=== PATIENT | male | born 1975 | race Caucasian/White ===

== ENCOUNTER 2019-07-04 16:46 | Emergency (ER) | payer BC, SELFPAY ==
[2019-07-04 16:59] VITALS: BP 135/78; PULSE 103; RESP 18; TEMP 36.8; O2SAT 100
--- NOTE | 2019-07-04 17:01 | ED.GENADULT ---
HPI - General Adult General Chief complaint: Ear Stated complaint: ear pain/left side numbness Time Seen by Provider: 07/04/19 17:01 Source: patient Mode of arrival: ambulatory Limitations: no limitations History of Present Illness HPI narrative: 43-year-old male patient presents to the [facility] with complaints of bilateral muffled hearing as well as upper back pain that radiates to the left arm. Patient states that he has had the symptoms for about a week and a half now but the hearing symptoms just started yesterday. Patient denies any fevers. Patient states he has had a little bit of a stuffy nose with some postnasal drip denies any coughing. Patient denies any sore throat, chest pain, shortness of breath, abdominal pain, nausea, vomiting or diarrhea. Patient states that a week and a half ago he tripped over his dog and kind of knocked heads with his at the time. Patient states he is just been getting more more sore recently and did see his chiropractor last Wednesday as well as yesterday and got readjusted and has been taking Keyla aspirin for his pain. Patient states that the pain does shoot down the left arm and does get tingling at times. 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 Related Data Home Medications Medication Instructions Recorded Confirmed citalopram 40 mg PO DAILY 07/04/19 07/04/19 lorazepam 1 mg PO BID 07/04/19 07/04/19 quetiapine 100 mg PO HS 07/04/19 07/04/19 zolpidem 10 mg PO HS 07/04/19 07/04/19 Allergies Allergy/AdvReac Type Severity Reaction Status Date / Time No Known Allergies Allergy Verified 07/04/19 17:06 Review of Systems Review of Systems: Narrative: CONSTITUTIONAL: Denies fever, chills, or sweats. EYES: Denies visual changes, redness, or discharge. ENT: Positive rhinorrhea, congestion, denies sore throat, positive bilateral otalgia. CARDIOVASCULAR: Denies chest pain, palpitations, or edema. RESPIRATORY: Denies cough or dyspnea. GASTROINTESTINAL: Denies abdominal pain, nausea, vomiting, or diarrhea. GENITOURINARY: Denies dysuria or hematuria. SKIN: Denies rash or itching. MUSCULOSKELETAL: Positive left upper back pain, denies joint pain, or myalgia. NEUROLOGIC: Denies headache, numbness, or weakness. PSYCHIATRIC: Denies anxiety or depression. PMFSH Comments At the time of my signature I agree with nursing past medical history, surgical, social, and family history. There is no relevant family history pertinent to the presenting complaint. Exam Narrative: Exam Narrative: GENERAL: Well-appearing, well-nourished, and in no acute distress. HEAD: Normocephalic, atraumatic. No tenderness noted to frontal maxillary sinuses on palpation. EYES: PERRLA and EOMI. ENT: Nares with erythema and edema noted bilaterally, no rhinorrhea or epistaxis. Mucous membranes moist. Posterior pharynx with some postnasal drip but no erythema no tonsil enlargement no exudates or lesions present. Slight cloudiness noted to bilateral TMs but no erythema or foreign bodies in the canal. NECK: Supple. No lymphadenopathy CHEST: Clear to auscultation. No respiratory distress. HEART: Regular rate and rhythm. No murmur heard. Normal peripheral pulses. ABDOMEN: Soft, nontender, nondistended, normal active bowel sounds. EXTREMITIES: Normal range of motion. No edema. BACK: Patient is able to ambulated without assistance. Pt is seated on the stretcher in no obvouis distress. No surface trauma noted. muscle tenderness and spasm noted to the left upper scapula area that reproduces the tingling and numbness down the arm when pressure is placed up against it. No step-offs or deformity noted to the cervical, thoracic or lumbar spine to firm Palpation at the midline. No CVA tenderness to percussion. No saddle anesthesia. ROM: able to stand erect. Normal flexion, extension, Lateral bending and rotation without limitation or complaint of pain. SKIN: Warm, dry, no rash. NEURO: No focal deficits. Marychuy
== END 2019-07-04 17:29 | disposition home or self-care (01) ==
PROVIDERS: Emergency Provider Nurse Practitioner Family; PCP Family Medicine Adolescent Medicine
DX: J00 Acute nasopharyngitis [common cold] (principal); J01.90 Acute sinusitis, unspecified; H93.8X3 Other specified disorders of ear, bilateral; M62.830 Muscle spasm of back; F32.9 Major depressive disorder, single episode, unspecified; F41.9 Anxiety disorder, unspecified
CPT/HCPCS: 99203; G0463

== ENCOUNTER 2021-06-06 16:04 | Emergency (ER) | payer BC, SELFPAY ==
[2021-06-06 17:24] VITALS: BP 127/87; PULSE 117; RESP 16; TEMP 36.6; O2SAT 99
--- NOTE | 2021-06-06 18:12 | ED.NAVMDI ---
HPI - Nausea/Vomiting/Diarrhea General Chief complaint: Nausea/Vomiting/Diarrhea Stated complaint: Nausea,Vomiting History of Present Illness HPI Narrative: Wil is a 45-year-old male patient who ambulated into the [facility]. Patient has a long history of feeling like food gets caught in his throat. Patient states he goes to the bathroom and vomits and usually is better. [facility] he went to the bathroom vomited multiple times. He is still able to drink water. But he is still vomiting. Patient states he does not have the feeling that something is stuck in his throat. He is worried about the vomiting. Patient is also extremely anxious patient states he feels like he is having spasms and has continuous hiccups. Patient has been seen in the past in the ER in the office multiple times for similar complaints. MD elicited complaint: nausea Related Data Home Medications Medication Instructions Recorded Confirmed citalopram 40 mg PO DAILY 07/04/19 06/06/21 lorazepam 1 mg PO BID 07/04/19 06/06/21 quetiapine 100 mg PO HS 07/04/19 06/06/21 zolpidem 10 mg PO HS 07/04/19 06/06/21 Allergies Allergy/AdvReac Type Severity Reaction Status Date / Time No Known Allergies Allergy Verified 06/06/21 17:23 Review of Systems Review of Systems: CONSTITUTIONAL: Denies body aches, fever, chills, or sweats. EYES: Denies visual changes, redness, or discharge. ENT: Denies rhinorrhea, congestion, sore throat, or otalgia. CARDIOVASCULAR: Denies chest pain, palpitations, or edema. RESPIRATORY: Denies cough or dyspnea. GASTROINTESTINAL: Denies abdominal pain,+nausea, +vomiting, Diarrhea. GENITOURINARY: Denies dysuria or hematuria. SKIN: Denies rash, itching, or wounds. MUSCULOSKELETAL: Denies back pain, joint pain, or myalgia. NEUROLOGIC: Denies headache, numbness, tingling, or weakness. PSYCH: Denies depression or anxiety. All systems reviewed & are unremarkable except as noted in HPI and below PMFSH Comments At time of signature, I have reviewed and agree with nursing past medical, surgical, social and family history unless otherwise noted. Please see nursing chart for further information. There is no relevant family history pertinent to the presenting complaint Exam Narrative: GENERAL: Well-appearing, well-nourished, and in no acute distress. HEAD: Normocephalic, atraumatic. EYES: EOMI. No redness or drainage. Conjunctivae normal. ENT: Mucous membranes pink and moist. Nares clear. No rhinorrhea. NECK: Normal AROM. Supple. . CHEST: No respiratory distress. Clear to auscultation. HEART: Regular rate and rhythm. No murmur appreciated. ABDOMEN: Soft, nontender, nondistended, normal active bowel sounds. MUSCULOSKELETAL: No bony tenderness. EXTREMITIES: Normal range of motion. No edema. SKIN: Warm, dry, no rash. Capillary refill normal. Normal skin turgor. NEURO: No focal deficits. Alert and oriented x3. Gait steady. PSYCH: Normal affect. No signs of depression or anxiety. Course Vital Signs Vital signs: Vital Signs Temperature 36.6 C 06/06/21 17:24 Pulse Rate 117 H 06/06/21 17:24 Respiratory Rate 16 06/06/21 17:24 Blood Pressure 127/87 06/06/21 17:24 Pulse Oximetry 99 06/06/21 17:24 Temperature 36.6 C 06/06/21 17:24 Pulse Rate 117 H 06/06/21 17:24 Respiratory Rate 16 06/06/21 17:24 Blood Pressure 127/87 06/06/21 17:24 Pulse Oximetry 99 06/06/21 17:24 MDM - Nausea/Vomiting/Diarrhea MDM Narrative Medical decision making narrative: Patient has nausea. Patient has vomited multiple times since eating at [employer]. Patient states he has the hiccups and feels like he is retching. Patient will be instructed to follow-up with Dr. Milan on Wednesday or Wednesday for continued symptoms. Patient was instructed to go to the ER immediately if he feels like he cannot eat, drink, or any severe shortness of breath. Lung
== END 2021-06-06 18:16 | disposition home or self-care (01) ==
PROVIDERS: Emergency Provider Nurse Practitioner Family; PCP Family Medicine Adolescent Medicine
DX: R11.2 Nausea with vomiting, unspecified (principal)
CPT/HCPCS: 99213; G0463

== ENCOUNTER 2021-12-31 00:45 | Day surgery (SDC) | payer BC, SELFPAY ==
[2021-12-16 14:28] VITALS: BMI 29.6
--- NOTE | 2021-12-31 09:16 | WPDANESEPPF ---
Anes - Initial Pre Proc Eval Procedure: Operation Date: 12/31/21 10:45 Proposed Procedures p Esophagogastroduodenoscopy - Nils Palacio MD Date/Time: 12/31/21 09:16 Surgeon: Nils Palacio MD Pre Op Diagnosis: dysphagia Patient Data Age: 46 Gender: M Height: 1.75 m Weight: 91 kg Allergies Allergy/AdvReac Type Severity Reaction Status Date / Time No Known Allergies Allergy Verified 12/31/21 09:32 Home Medications Medication Instructions Recorded Confirmed Type zolpidem 10 mg tablet 10 mg PO QHS #30 tabs 09/28/21 12/16/21 Rx citalopram 40 mg tablet 40 mg PO DAILY #90 tabs 10/06/21 12/16/21 Rx quetiapine 100 mg tablet 100 mg PO HS #90 tabs 10/24/21 12/16/21 Rx lorazepam 0.5 mg tablet 1 mg PO BID PRN anxiety #120 tabs 12/18/21 12/31/21 Rx Patient hx anesthesia problems: none Family hx anesthesia problems: none Results Review: All pre-operative results and documents have been reviewed as part of the pre-operative evaluation. [facility] Past Medical History Medical History (Updated 12/31/21 @ 09:17 by Sourav Mendes MD) Chronic GERD Generalized anxiety disorder History of arm fracture left arm requiring pin placement Major depressive disorder, recurrent, moderate Overweight (BMI 25.0-29.9) Surgical History Surgical History History of vasectomy Family History Family History Mother Asthma Depression Diabetes mellitus Father Depression Diabetes mellitus Hypertension Social History Social History Smoking status: Never smoker Second hand tobacco smoke exposure: No Alcohol intake: never Substance use: never Substance use type: does not use Living arrangements: with family Gender identity (if verbalized by the patient): Male Sexual Orientation (if Verbalized by the Patient): Straight or Heterosexual Spiritual care concerns: No Agree to blood products: Yes Anes - Eval Final PreProcedure Day of Procedure 12/31/21 09:16 Patient weight: overweight Heart: regular rate and rhythm Lungs: clear to auscultation and normal air movement Airway: Mallampati scale class II Neurological: alert and oriented Last oral intake: >/= 8 hours ASA classification: II Emergent: no Anesthetic plan: proceed Anesthesia type and monitoring: general GIVS Results Review: All pre-operative results and documents have been reviewed as part of the pre-operative evaluation. Informed Consent: The patient's anesthetic plan and its attendant risks and benefits were discussed with the patient/family/POA. Questions were solicited and answers provided to the satisfaction of the patient/family/POA.
[2021-12-31 09:33] VITALS: BP 101/62; PULSE 96; RESP 18; TEMP 36.2; O2SAT 100
[2021-12-31] MEDS: LACTATED RINGERS 1,000 ML 150 ML IV CONT (09:43)
--- NOTE | 2021-12-31 10:31 | PM.HPGS ---
History of Present Illness History of Present Illness Consent: Risks, benefits, and alternatives have been discussed and questions answered. Patient agrees to proceed with procedure. Chief complaint: dysphagia Narrative: Vasiliy Chen is a 46 year old male with choking sensation after eating mostly solids, never had egd and he has not tried a medication. Review of Systems Constitutional: Constitutional: Denies headache(s) and Denies weakness Eyes: Eyes: Denies blurry vision ENT: Reports Normal hearing present, Denies headache(s) and Denies neck pain Cardiovascular: Cardiovascular: Denies chest pain and Denies dyspnea Respiratory: Respiratory: Denies dyspnea Gastrointestinal: Gastrointestinal: Reports no additional gastrointestinal complaints Genitourinary: Genitourinary: Denies dysuria Musculoskeletal: Musculoskeletal: Denies neck pain Integumentary/Breasts: Skin/Breast: Denies dry skin Neurologic: Reports Normal hearing present, Denies headache(s) and Denies weakness Psychiatric: Psychiatric: Denies anxiety Endocrine: Endocrine: Denies change in body appearance Hematologic/Lymphatic: Hematologic/Lymphatic: Denies easy bleeding Allergic/Immunologic: Allergic/Immunologic: Denies urticaria PMFSH Past Medical History Medical History (Updated 12/31/21 @ 10:32 by Nils Palacio MD) Chronic GERD Dysphagia Generalized anxiety disorder History of arm fracture left arm requiring pin placement Major depressive disorder, recurrent, moderate Overweight (BMI 25.0-29.9) Surgical History Surgical History History of vasectomy Family History Family History Mother Asthma Depression Diabetes mellitus Father Depression Diabetes mellitus Hypertension Social History Social History Smoking status: Never smoker Second hand tobacco smoke exposure: No Alcohol intake: never Substance use: never Substance use type: does not use Living arrangements: with family Gender identity (if verbalized by the patient): Male Sexual Orientation (if Verbalized by the Patient): Straight or Heterosexual Spiritual care concerns: No Agree to blood products: Yes Meds Home Medications and Allergies Home Medications Medication Instructions Recorded Confirmed Type zolpidem 10 mg tablet 10 mg PO QHS #30 tabs 09/28/21 12/16/21 Rx citalopram 40 mg tablet 40 mg PO DAILY #90 tabs 10/06/21 12/16/21 Rx quetiapine 100 mg tablet 100 mg PO HS #90 tabs 10/24/21 12/16/21 Rx lorazepam 0.5 mg tablet 1 mg PO BID PRN anxiety #120 tabs 12/18/21 12/31/21 Rx Allergies Allergy/AdvReac Type Severity Reaction Status Date / Time No Known Allergies Allergy Verified 12/31/21 09:32 Vital Signs Vital Signs - 24 hr 12/31/21 09:33 Temperature 97.1 F L Pulse Rate 96 Respiratory Rate 18 Blood Pressure 101/62 Pulse Oximetry 100 Oxygen Delivery Room Air Exam Const: General: comfortable and no acute distress HENMT: General nose exam: Normal nares present Eyes: General: appearance normal, both eyes and all related structures Neck: Neck: no JVD Resp: Auscultation: clear to auscultation bilaterally Cardio: Rate: regular rate Rhythm: regular rhythm GI: Inspection: non-distended GI Palp: Yes Soft to palpation Skin: General skin exam: normal color Neuro: General: gait normal Speech: normal speech Extrem: General: normal to inspection Psych: Mental Status: mental status grossly normal Assessment and Plan Assessment and plan (1) Dysphagia: Code(s): R13.10 - Dysphagia, unspecified Status: Acute Assessment and Plan: egd to assess if eoe, stricture, gerd, etc more recommendations after scope
[2021-12-31 10:51] VITALS: BP 116/67; PULSE 86; RESP 20; O2SAT 100
[2021-12-31 11:01] VITALS: BP 121/88; PULSE 78; RESP 17; O2SAT 100
[2021-12-31 11:11] VITALS: BP 126/84; PULSE 78; RESP 17; O2SAT 100
--- NOTE | 2021-12-31 11:15 | SUR.PHASEII ---
patient had on the phone as discharge instructions were gone over.
== END 2021-12-31 11:21 | disposition home or self-care (01) ==
PROVIDERS: PCP Family Medicine Adolescent Medicine; Visit Provider Internal Medicine Gastroenterology
PROC: 0DJ08ZZ Inspection of Upper Intestinal Tract, Via Natural or Artificial Opening Endoscopic (ICD-10-PCS; CPT 43235; principal; 2021-12-31 10:45)
DX: R13.10 Dysphagia, unspecified (principal); K21.00 Gastro-esophageal reflux disease with esophagitis, without bleeding; K22.2 Esophageal obstruction; K29.50 Unspecified chronic gastritis without bleeding; F32.A Depression, unspecified
CPT/HCPCS: 43239; 43249; 87081; 88305; C1726; J2001; J2704; J7120

== ENCOUNTER 2022-08-06 12:15 | Emergency (ER) | payer BC, SELFPAY ==
[2022-08-06 12:23] VITALS: BP 135/76; PULSE 102; RESP 18; TEMP 36.4; O2SAT 100
--- NOTE | 2022-08-06 12:46 | ED.URI ---
HPI - URI/Sore Throat General Chief Complaint: Upper Respiratory Infection Stated Complaint: Sore Throat,Fatigue,Congestion Time Seen by Provider: 08/06/22 12:41 Source: patient and family () Mode of arrival: ambulatory Limitations: no limitations History of Present Illness HPI Narrative: Patient presents today complaining of a through his stool sore throat, postnasal drip, and headache. Denies any additional symptoms to include cough, fever. Currently rates his pain 4/10 and has been taking DayQuil and ibuprofen without much relief. Patient is a schoolteacher with multiple sick contacts. Related Data Allergies Allergy/AdvReac Type Severity Reaction Status Date / Time No Known Allergies Allergy Verified 08/06/22 12:40 Review of Systems Review of Systems: CONSTITUTIONAL: Denies body aches, fever, chills, or sweats. EYES: Denies visual changes, redness, or discharge. ENT: Denies rhinorrhea, congestion, or otalgia.+ sore throat, postnasal drip CARDIOVASCULAR: Denies chest pain, palpitations, or edema. RESPIRATORY: Denies cough or dyspnea. GASTROINTESTINAL: Denies abdominal pain, nausea, vomiting, or diarrhea. GENITOURINARY: Denies dysuria or hematuria. SKIN: Denies rash, itching, or wounds. MUSCULOSKELETAL: Denies back pain, joint pain, or myalgia. NEUROLOGIC: Denies numbness, tingling, or weakness.+ headache PSYCH: Denies depression or anxiety. [facility] Past Medical History Medical History Chronic GERD Dysphagia Generalized anxiety disorder History of arm fracture left arm requiring pin placement Major depressive disorder, recurrent, moderate Overweight (BMI 25.0-29.9) Surgical History Surgical History History of vasectomy Family History Family History Mother Asthma Depression Diabetes mellitus Father Depression Diabetes mellitus Hypertension Social History Social History Smoking status: Never smoker Second hand tobacco smoke exposure: No Alcohol intake: never Substance use: never Substance use type: does not use Living arrangements: with family Occupation/Education: occupation Gender identity (if verbalized by the patient): Male Sexual Orientation (if Verbalized by the Patient): Straight or Heterosexual Spiritual care concerns: No Agree to blood products: Yes Comments At time of signature, I have reviewed and agree with nursing past medical, surgical, social and family history unless otherwise noted. Please see nursing chart for further information. There is no relevant family history pertinent to the presenting complaint Exam Narrative: GENERAL: Well-appearing, well-nourished, and in no acute distress. HEAD: Normocephalic, atraumatic. EYES: EOMI. No redness or drainage. Conjunctivae normal. ENT: Mucous membranes pink and moist. Nares clear. No rhinorrhea. TMs normal bilaterally. Throat very mildly erythematous without edema or exudate. Uvula midline. NECK: Normal AROM. Supple. No lymphadenopathy. CHEST: No respiratory distress. Clear to auscultation. HEART: Regular rate and rhythm. No murmur appreciated. Normal peripheral pulses. EXTREMITIES: Normal range of motion. No edema. SKIN: Warm, dry, no rash. Capillary refill normal. Normal skin turgor. NEURO: No focal deficits. Alert and oriented x3. Gait steady. PSYCH: Normal affect. No signs of depression or anxiety. Course Course Level of Care: Express Care Visit Vital Signs Vital signs: Vital Signs Temperature 97.6 F 08/06/22 12:23 Pulse Rate 102 H 08/06/22 12:23 Respiratory Rate 18 08/06/22 12:23 Blood Pressure 135/76 08/06/22 12:23 Pulse Oximetry 100 08/06/22 12:23 Oxygen Delivery Room Air 08/06/22 12:23 Temperature 97.6 F 08/06/22 12
== END 2022-08-06 13:00 | disposition home or self-care (01) ==
PROVIDERS: Emergency Provider Nurse Practitioner; PCP Family Medicine Adolescent Medicine
DX: J06.9 Acute upper respiratory infection, unspecified (principal)
CPT/HCPCS: 87081; 87880; 99213; G0463

== ENCOUNTER 2022-08-14 14:39 | Emergency (ER) | payer BC, SELFPAY ==
[2022-08-14 14:47] VITALS: BP 123/87; PULSE 106; RESP 18; TEMP 36.3; O2SAT 98
--- NOTE | 2022-08-14 14:53 | ED.URI ---
HPI - URI/Sore Throat General Chief Complaint: Upper Respiratory Infection Stated Complaint: nasal drainage Time Seen by Provider: 08/14/22 15:03 Source: patient, RN notes reviewed and old records reviewed Mode of arrival: ambulatory Limitations: no limitations History of Present Illness HPI Narrative: 46-year-old male presents to the [facility] with complaints of sinus drainage that has been going on at least 10 days. Was evaluated on 06 August, 8 days ago for same complaint, had strep test was negative at that time. Patient states he still having symptoms. Reports taking Zyrtec daily. Reports taking NyQuil patient appears very anxious. Onset (ago): day(s) (10) Related Data Allergies Allergy/AdvReac Type Severity Reaction Status Date / Time No Known Allergies Allergy Verified 08/14/22 14:45 Review of Systems Review of Systems: All systems reviewed & are unremarkable except as noted in HPI and below Constitutional: Constitutional: Reports no additional constitutional complaints Eyes: Eyes: Reports no additional eye complaints ENT: Reports as per HPI, Reports nasal congestion and Reports nasal discharge Cardiovascular: Cardiovascular: Reports no additional cardiovascular complaints, Denies chest pain and Denies dyspnea Respiratory: Respiratory: Reports no additional respiratory complaints, Denies chest congestion, Denies cough and Denies dyspnea Gastrointestinal: Gastrointestinal: Reports no additional gastrointestinal complaints, Denies abdominal pain, Denies nausea and Denies vomiting Musculoskeletal: Musculoskeletal: Reports no additional musculoskeletal complaints Integumentary/Breasts: Skin/Breast: Reports system reviewed and no additional complaints, except as docu Neurologic: Reports system reviewed and no additional complaints, except as documented Psychiatric: Psychiatric: Reports no additional psychiatric complaints Allergic/Immunologic: Allergic/Immunologic: Reports no additional allergic/immunologic complaints [facility] Past Medical History Medical History Chronic GERD Dysphagia Generalized anxiety disorder History of arm fracture left arm requiring pin placement Major depressive disorder, recurrent, moderate Overweight (BMI 25.0-29.9) Surgical History Surgical History History of vasectomy Family History Family History Mother Asthma Depression Diabetes mellitus Father Depression Diabetes mellitus Hypertension Social History Social History (Reviewed 08/14/22 @ 19:19 by LAMAR Ward Smoking status: Never smoker Second hand tobacco smoke exposure: No Alcohol intake: never Substance use: never Substance use type: does not use Living arrangements: with family Occupation/Education: occupation Gender identity (if verbalized by the patient): Male Sexual Orientation (if Verbalized by the Patient): Straight or Heterosexual Spiritual care concerns: No Agree to blood products: Yes Comments At the time of my signature, I reviewed and agree with the nursing past medical, surgical, social, and family history. There is no relevant family history pertinent to the patient complaint. Exam Const: General: cooperative, healthy appearing, comfortable, no acute distress, well developed, alert and well nourished Nutritional Appearance: well nourished Orientation/consciousness: patient oriented x3 Limitations: no limitations HENMT: Head: normal to inspection Ears: hearing grossly normal bilaterally and external ears normal Face/Nose/Sinus: Normal external nose present, Normal nares present, Normal nasal mucous membranes and turbinates present and normal facial exam Face and sinus: normal facial exam Mouth: Yes Normal oral and palatal mucosa present, Yes lip normal and Yes moist mucous membranes Th
== END 2022-08-14 15:14 | disposition home or self-care (01) ==
PROVIDERS: Emergency Provider Nurse Practitioner; PCP Family Medicine Adolescent Medicine
DX: J01.90 Acute sinusitis, unspecified (principal)
CPT/HCPCS: 99213; G0463

== ENCOUNTER 2023-05-23 09:13 | Emergency (ER) | payer BC, SELFPAY ==
[2023-05-23 09:38] VITALS: BP 127/81; PULSE 89; RESP 16; TEMP 36.3; O2SAT 99
--- NOTE | 2023-05-23 10:13 | ED.URI ---
HPI - URI/Sore Throat General Chief Complaint: Upper Respiratory Infection Stated Complaint: Diarrhea/Sore Throat Source: patient Mode of arrival: ambulatory Limitations: no limitations History of Present Illness HPI Narrative: 47-year-old male presents to [facility] with complaints of sore throat, cough, congestion, runny nose and intermittent diarrhea for the past 5 days. Patient reports the sore throat became worse 2-3 days ago. Patient reports that his stomach COVID 2 weeks ago. Patient has been taking [id number] Tylenol, DayQuil and Mucinex with minimal relief. Patient is nonsmoker. Patient denies recent travel. Patient has shortness of breath, wheezing, nausea or vomiting. MD elicited complaint: cough, sore throat, rhinorrhea and nasal congestion Onset (ago): day(s) (5) Able to tolerate fluids by mouth: Yes Context: sick contacts Treatments prior to arrival: acetaminophen and cold medicine Related Data Allergies Allergy/AdvReac Type Severity Reaction Status Date / Time No Known Allergies Allergy Verified 05/23/23 09:51 Review of Systems Constitutional: Constitutional: Denies chills, Denies fatigue, Denies fever(s) and Denies weakness ENT: Denies vertigo, Denies dizziness, Denies epistaxis, Reports nasal congestion and Reports sore throat Cardiovascular: Cardiovascular: Denies chest pain Respiratory: Respiratory: Reports cough, Denies dyspnea and Denies wheezing Gastrointestinal: Gastrointestinal: Denies abdominal pain, Denies bloating, Reports diarrhea, Denies nausea and Denies vomiting Musculoskeletal: Musculoskeletal: Denies arthralgias and Denies joint swelling Integumentary/Breasts: Skin/Breast: Denies rash Neurologic: Denies dizziness, Denies syncope and Denies headache(s) [facility] Past Medical History Medical History Chronic GERD Dysphagia Generalized anxiety disorder History of arm fracture left arm requiring pin placement Major depressive disorder, recurrent, moderate Overweight (BMI 25.0-29.9) Surgical History Surgical History History of vasectomy Family History Family History Mother Asthma Depression Diabetes mellitus Father Depression Diabetes mellitus Hypertension Social History Social History Smoking status: Never smoker Second hand tobacco smoke exposure: No Alcohol intake: never Substance use: never Substance use type: does not use Living arrangements: with family Occupation/Education: occupation Gender identity (if verbalized by the patient): Male Sexual Orientation (if Verbalized by the Patient): Straight or Heterosexual Spiritual care concerns: No Agree to blood products: Yes Comments At time of signature, I agree with nursing past medical, surgical, social and family history. There is no relevant family history pertinent to the presenting complaint. Exam Const: General: healthy appearing and no acute distress Nutritional Appearance: well nourished Orientation/consciousness: patient oriented x3 Limitations: no limitations HENMT: Head: normal to inspection Ears: external ears normal Face/Nose/Sinus: Normal external nose present and Normal nares present Mouth: Yes Normal oral and palatal mucosa present and Yes moist mucous membranes Throat: uvula midline Other: Mild erythema noted to oropharynx Eyes: Conjunctivae: conjunctivae normal Resp: Effort & Inspection: normal respiratory effort and not labored Auscultation: clear to auscultation bilaterally, no crackles, no rales, no rhonchi and no wheezes Cardio: Rate: regular rate Rhythm: regular rhythm Heart sounds: no murmurs Skin: General skin exam: normal color Rashes: no rashes Neuro: General: patient oriented x3 Psych: Affect: normal affect Attitude
== END 2023-05-23 10:18 | disposition home or self-care (01) ==
PROVIDERS: Emergency Provider Nurse Practitioner Family; PCP Family Medicine Adolescent Medicine
DX: B34.9 Viral infection, unspecified (principal); Z20.822 Contact with and (suspected) exposure to COVID-19; K21.9 Gastro-esophageal reflux disease without esophagitis; F33.8 Other recurrent depressive disorders; F41.1 Generalized anxiety disorder; Z98.52 Vasectomy status
CPT/HCPCS: 87081; 87426; 87880; 99213; C9803; G0463